=== PATIENT | male | born 1970 | race Asian ===

== ENCOUNTER 2018-09-08 02:07 | Emergency (ER) | payer BC ==
[2018-09-08] MEDS ORDERED: valACYclovir 1,000 MG Tab PO SCH (02:30)
[2018-09-08] MEDS ORDERED: predniSONE 20 MG Tab PO ONE (02:30)
--- NOTE | 2018-09-08 02:36 | EDM.PDOC ---
ED HPI GENERAL MEDICAL PROBLEM - General Chief Complaint: Neurological Problem Stated Complaint: MED[facility] Time Seen by Provider: 09/08/18 02:20 Source of Information: Reports: Patient, EMS, RN History Limitations: Reports: No Limitations - History of Present Illness INITIAL COMMENTS - FREE TEXT/NARRATIVE: 48 yo NA male comes via EMS from the [facility] where he works for L facial droop of 3 days duration. He has noticed difficulty with closing the L eye and eye watering on that side. He has no trouble swallowing, talking or walking. He states that he feels fine. He has no significant past medical hx. No ADAME. 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 (see below) (none) - Related Data Allergies Allergy/AdvReac Type Severity Reaction Status Date / Time No Known Allergies Allergy Verified 09/08/18 02:13 Home Meds: Home Meds NK [No Known Home Meds] 09/08/18 [History] Past Medical History - Past Health History Medical/Surgical History: Denies Medical/Surgical History Social & Family History - Tobacco Use Smoking Status *Q: Never Smoker - Caffeine Use Caffeine Use: Reports: Coffee Other Caffeine Use: works overnights - Recreational Drug Use Recreational Drug Use: No ED ROS GENERAL - Review of Systems Review Of Systems: See Below Constitutional: Reports: No Symptoms HEENT: Reports: Eye Discharge (watering of the left eye) Respiratory: Reports: No Symptoms Cardiovascular: Reports: No Symptoms GI/Abdominal: Reports: No Symptoms : Reports: No Symptoms Musculoskeletal: Reports: No Symptoms Skin: Reports: No Symptoms Neurological: Reports: Other (L facial droop) Psychiatric: Reports: No Symptoms ED EXAM, NEURO - Physical Exam Exam: See Below Exam Limited By: No Limitations General Appearance: Alert, WD/WN, No Apparent Distress Eye Exam: Bilateral Eye: EOMI, PERRL, Other (unable to fully close the L eye so it is watering) Ears: Normal External Exam, Normal Canal, Hearing Grossly Normal, Normal TMs Nose: Normal Inspection, No Blood Throat/Mouth: Normal Inspection, Normal Lips, Normal Oropharynx, Normal Voice, No Airway Compromise Head Exam: Atraumatic, Normocephalic Neck: Normal Inspection Respiratory/Chest: No Respiratory Distress, Lungs Clear, Normal Breath Sounds, No Accessory Muscle Use Cardiovascular: Regular Rate, Rhythm, No Edema Neurological: Alert, Normal Mood/Affect, No Motor/Sensory Deficits, Oriented x 3 , Other (unable to fully close the L eye, L side of mouth does not rise with attempted smiling.). No: CN II-XII Intact Extremities: Normal Inspection, Normal Range of Motion, Non-Tender, No Pedal Edema Psychiatric: Normal Affect, Normal Mood Skin Exam: Warm, Dry, Intact, Normal Color, No Rash Course - Vital Signs Last Recorded V/S: Last Vital Signs Temp 37.2 C 09/08/18 02:10 Pulse 80 09/08/18 02:10 Resp 17 09/08/18 02:10 BP 145/88 H 09/08/18 02:10 Pulse Ox 95 09/08/18 02:10 - Orders/Labs/Meds Orders: Active Orders 24 hr Category Date Time Status predniSONE Med 09/08/18 02:30 Once 20 mg PO ONETIME ONE valACYclovir [Valtrex] Med 09/08/18 02:30 Ordered 1,000 mg PO DAILY Departure - Departure Time of Disposition: 02:55 Disposition: Home, Self-Care 01 Condition: Fair Clinical Impression: Tripathi's palsy - Discharge Information *PRESCRIPTION DRUG MONITORING PROGRAM REVIEWED*: No *COPY OF PRESCRIPTION DRUG MONITORING REPORT IN PATIENT ALVA: No Instructions: Tripathi Palsy, Adult Referrals: PCP,None [Primary Care Provider] - Additional Instructions: Take prednisone 20 mg every 8 hrs and Valacyclovir 1000 mg every 8 hrs both until gone. Keep your left eye taped shut at night when you are trying to sleep to prevent it from drying out. Recheck with a doctor of your choice next Tuesday in the clinic, call later today to make that appt. We have a Lyme test that needs to be followed up on next week when you return to the clinic - My Orders Last 24 Hours: My Active Orders 09/08/18 02:30 predniSONE 20 mg PO ONETIME ONE valACYclovir [Valtrex] 1,000 mg PO DAILY - Assessment/Plan Last 24 Hours: My Active Orders 09/08/18 02:30 predniSONE 20 mg PO ONETIME ONE valACYclovir [Valtrex] 1,000 mg PO DAILY
== END 2018-09-08 02:59 | disposition home or self-care (01) ==
LOC: JP.ED 02:07
DX: G51.0 Bell's palsy (principal)
CPT/HCPCS: 87476; 99284; A9270